=== PATIENT | female | born 1945 | race American Indian/Alaskan Native ===

== ENCOUNTER 2019-01-22 11:38 | Day surgery (SDC) | payer MEDICARE ==
[~2019-01-22 11:38] MED LIST: IOPIDINE ONE; MYDRIACYL ONE; NEOFRIN ONE
[2019-01-22] MEDS ORDERED: IOPIDINE OD ONE ×2 (12:21→13:03)
[2019-01-22] MEDS ORDERED: MYDRIACYL OD ONE (12:21)
[2019-01-22] MEDS ORDERED: NEOFRIN OD ONE (12:21)
[2019-01-22 14:16] VITALS: BP 139/70
== END 2019-01-22 13:32 | disposition home or self-care (01) ==
LOC: OR 11:38
PROVIDERS: ATTEND Specialist
DX: H26.491 Other secondary cataract, right eye (principal); E78.00 Pure hypercholesterolemia, unspecified; I10 Essential (primary) hypertension; K21.9 Gastro-esophageal reflux disease without esophagitis; G47.30 Sleep apnea, unspecified; Z91.013 Allergy to seafood; Z88.2 Allergy status to sulfonamides; Z91.010 Allergy to peanuts; Z79.899 Other long term (current) drug therapy; Z98.41 Cataract extraction status, right eye; Z98.42 Cataract extraction status, left eye; Z90.49 Acquired absence of other specified parts of digestive tract; Z90.710 Acquired absence of both cervix and uterus; Z98.890 Other specified postprocedural states

== ENCOUNTER 2019-02-19 11:25 | Day surgery (SDC) | payer MEDICARE ==
[2019-02-19] MEDS ORDERED: IOPIDINE OS ONE (11:40)
[2019-02-19] MEDS ORDERED: NEOFRIN OS ONE (11:42)
[2019-02-19] MEDS ORDERED: MYDRIACYL OS ONE (11:43)
[2019-02-19 12:26] VITALS: BP 144/73
== END 2019-02-19 11:26 | disposition home or self-care (01) ==
LOC: OR 11:25
PROVIDERS: ATTEND Specialist
DX: H26.492 Other secondary cataract, left eye (principal); E78.00 Pure hypercholesterolemia, unspecified; I10 Essential (primary) hypertension; G47.30 Sleep apnea, unspecified; K21.9 Gastro-esophageal reflux disease without esophagitis; M19.90 Unspecified osteoarthritis, unspecified site; Z88.2 Allergy status to sulfonamides; Z91.013 Allergy to seafood; Z91.010 Allergy to peanuts; Z79.899 Other long term (current) drug therapy; Z98.41 Cataract extraction status, right eye; Z98.42 Cataract extraction status, left eye; Z90.49 Acquired absence of other specified parts of digestive tract; Z90.710 Acquired absence of both cervix and uterus; Z96.651 Presence of right artificial knee joint; Z98.890 Other specified postprocedural states
CPT/HCPCS: 82962